=== PATIENT | male | born 1995 | race African-American/Black ===

== ENCOUNTER 2016-10-31 16:06 | Emergency (ER) | payer SELFPAY ==
[~2016-10-31] VITALS: Ht 192.4 cm; Wt 107.0 kg
[2016-10-31 16:09] VITALS: BP 130/87; PULSE 72; RESP 16; TEMP 98; O2SAT 96
[2016-10-31 18:38] VITALS: BP 132/68; PULSE 73; RESP 18; TEMP 98.5; O2SAT 100
--- NOTE | 2016-10-31 18:41 | PD ---
HPI Chief Complaint: Depression Time Seen by Provider: 18:40 Travel History International Travel<30 days: No Contact w/Intl Traveler<30days: No Traveled to known affect area: No History of Present Illness HPI 21-year-old male presents to the emergency department for evaluation of depression. The patient was seen by the counselor at his [employer] today and was referred to come here for psychiatric evaluation. The patient agreed to come voluntarily. The patient states that 3 years ago when he stopped playing football he became very disappointed with himself and slightly depressed. States that he has wrestled with this depression since then but that 3 weeks ago his girlfriend broke up with him and his depression has worsened. He denies any thoughts of harming himself or anyone else. He denies any attempts to harm himself. Denies any ingestion of substances. He states that he used to smoke marijuana but quit smoking this about 2 months ago. Denies any other drug use. Denies alcohol use. He denies alcides auditory or visual hallucinations. He states that he has 2 sides of his mind that seem to drive his thought processes. He describes one side of his thoughts to be "rational" and the other to be "irrational." States that his rational thoughts will "uplift and encourage him." States that the irrational sides of himself cause him to feel "self-deprecating and depressed." He denies any medical complaints. Denies any fever, chills, nausea, vomiting, chest pain, shortness of breath, abdominal pain. He does not take any medications. No other complaints. [facility], [facility] Past Medical History Patient Takes Glucophage: No Diminished Hearing: No Immunizations Current: Yes ([employer] Student) Tetanus Vaccination: Unknown Influenza Vaccination: Yes ?: Not Past Surgical History Surgical History: No Previous Surgery Social History Alcohol Use: Yes (Occassionally) Tobacco Use: No (Denies.) Substance Use: No ( Marijusterling - states stopped New Years 2016.) Allergies-Medications (Allergen,Severity, Reaction): Uncoded Allergies: Pollen (Allergy, Unknown, 10/31/16) Per pt. Reported Meds & Prescriptions Reported Meds & Active Scripts Active No Active Prescriptions or Reported Medications Review of Systems Except as stated in HPI: all other systems reviewed are Neg Physical Exam Narrative GENERAL: Well-nourished and well-developed pleasant male patient in no acute distress who is nontoxic appearing. SKIN: Warm and dry. HEAD: Normocephalic and atraumatic. EYES: No injection, drainage, or hyphema noted. PERRLA. EOMI. ENT: No nasal drainage noted. Oropharynx is clear. NECK: Supple and the trachea is midline. CARDIOVASCULAR: Regular rate and rhythm. RESPIRATORY: Breath sounds are equal bilaterally with no accessory muscle use, wheezing, rhonchi, or crackles. GASTROINTESTINAL: Abdomen is soft, non-tender, and nondistended. MUSCULOSKELETAL: No obvious deformities, swelling, cyanosis, or ecchymosis is present throughout the upper and lower extremities. Patient has full range of motion without any signs of neurovascular compromise. NEUROLOGICAL: Awake, alert, and oriented. Normal speech and gait. Cranial nerves are grossly intact. PSYCHIATRIC: No delusional thought processes. No hallucinations. Data Data Last Documented VS Vital Signs Date Time Temp Pulse Resp B/P Pulse Ox O2 Delivery O2 Flow Rate FiO2 10/31/16 22:16 97.4 65 18 125/76 100 Room Air Orders Diet Regular Basic (10/31/16 Dinner) Complete Blood Count With Diff (10/31/16 18:01) Comprehensive Metabolic Panel (10/31/16 18:01) Psych Screen (10/31/16 18:01) Drug Screen, Random Urine (10/31/16 18:01) Alcohol (Ethanol) (10/31/16 18:01) Labs Laboratory Tests Test 10/31/16 10/31/16 18:38 18:56 White Blood Count 6.7 TH/MM3 Red Blood Count 4.85 MIL/MM3 Hemoglobin 13.3 GM/DL Hematocrit 39.9 % Mean Corpuscular Volume 82.3 FL Mean Corpuscular Hemoglobin 27.4 PG Mean Corpuscular Hemoglobin 33.3 % Concent Red Cell Distribution Width 13.6 % Platelet Count 223 TH/MM3 Mean Platelet Volume 8.0 FL Neutrophils (%) (Auto) 50.2 % Lymphocytes (%) (Auto) 34.4 % Monocytes (%) (Auto) 9.7 % Eosinophils (%) (Auto) 4.9 % Basophils (%) (Auto) 0.8 % Neutrophils # (Auto) 3.4 TH/MM3 Lymphocytes # (Auto) 2.3 TH/MM3 Monocytes # (Auto) 0.7 TH/MM3 Eosinophils # (Auto) 0.3 TH/MM3 Basophils # (Auto) 0.1 TH/MM3 CBC Comment DIFF FINAL Differential Comment Sodium Level 139 MEQ/L Potassium Level 3.9 MEQ/L Chloride Level 103 MEQ/L Carbon Dioxide Level 29.9 MEQ/L Anion Gap 6 MEQ/L Blood Urea Nitrogen 16 MG/DL Creatinine 1.16 MG/DL Estimat Glomerular Filtration 97 ML/MIN Rate Random Glucose 87 MG/DL Calcium Level 9.0 MG/DL Total Bilirubin 0.3 MG/DL Aspartate Amino Transf 41 U/L (AST/SGOT) Alanine Aminotransferase 42 U/L (ALT/SGPT) Alkaline Phosphatase 60 U/L Total Protein 7.0 GM/DL Albumin 3.8 GM/DL Ethyl Alcohol Level LESS THAN 3 MG/DL Urine Opiates Screen NEG Urine Barbiturates Screen NEG Urine Amphetamines Screen NEG Urine Benzodiazepines Screen NEG Urine Cocaine Screen NEG Urine Cannabinoids Screen NEG MDM Medical Decision Making Medical Screen Exam Complete: Yes Emergency Medical Condition: Yes Differential Diagnosis Differential: Depression versus adjustment reaction versus anxiety versus PTSD versus psychosis NOS versus mood disorder NOS versus substance induced mood disorder versus ODD versus adjustment reaction versus schizophrenia versus bipolar disorder versus schizoaffective versus electrolyte abnormality Narrative Course Patient presents voluntarily for psychiatric evaluation. Physical examination and vital signs are essentially unremarkable. Patient has no medical complaints to report. He seems to be experiencing some mood disorder but he has no suicidal or homicidal ideations. The patient is not a harm to himself or anyone else. He does not meet Pacheco act criteria. He is encouraged to stay and speak with the psychiatrist but if he wishes to leave he is stable and safe to do so. Patient is currently agreeable to stay for psych screening. Psych screen has been ordered. The laboratory results are unremarkable. The patient is medically cleared for psychiatric evaluation and disposition. Diagnosis Primary Impression: Mood disorder Scripts No Active Prescriptions or Reported Meds Nighat Bradley Oct 31, 2016 18:41
[2016-10-31 18:56] LABS: AUTOMATED NEUTROPHIL # 3.4 TH/MM3 (1.8-7.7); BASOPHIL # 0.1 TH/MM3 (0-0.2); BASOPHIL % 0.8 % (0.0-2.0); EOSINOPHIL # 0.3 TH/MM3 (0-0.4); EOSINOPHIL % 4.9 % (0.0-4.0); HEMATOCRIT 39.9 % (39.0-51.0); HEMO FLAGS DIFF FINAL; LYMPH % 34.4 % (9.0-44.0); LYMPHOCYTE # 2.3 TH/MM3 (1.0-4.8); MEAN CELL VOLUME 82.3 FL (80.0-100.0); MEAN CORPUSCULAR HEMOGLOBIN 27.4 PG (27.0-34.0); MEAN CORPUSCULAR HGB CONC 33.3 % (32.0-36.0); MONO % 9.7 % (0.0-8.0); NEUT % 50.2 % (16.0-70.0); PLATELET COUNT 223 TH/MM3 (150-450); RED BLOOD COUNT 4.85 MIL/MM3 (4.50-5.90); RED CELL DISTRIBUTION WIDTH 13.6 % (11.6-17.2); WHITE BLOOD COUNT 6.7 TH/MM3 (4.0-11.0)
[2016-10-31 19:22] LABS: ANION GAP 6 MEQ/L (5-15); AST (GOT) 41 U/L (15-39); BICARBONATE 29.9 MEQ/L (21.0-32.0); BLOOD UREA NITROGEN 16 MG/DL (7-18); CHLORIDE 103 MEQ/L (98-107); GLOMERULAR FILTRATION RATE 97 ML/MIN (>89); POTASSIUM 3.9 MEQ/L (3.5-5.1); SODIUM (NA) 139 MEQ/L (136-145)
[2016-10-31 19:27] LABS: ALKALINE PHOSPHATASE 60 U/L (45-117); ALT (GPT) 42 U/L (9-52); TOTAL BILIRUBIN ADULT 0.3 MG/DL (0.2-1.0)
[2016-10-31 19:32] LABS: AMPHETAMINE, URINE NEG (NEG); BARBITURATES, URINE NEG (NEG); COCAINE, URINE NEG (NEG)
[2016-10-31 22:16] VITALS: BP 125/76; PULSE 65; RESP 18; TEMP 97.4; O2SAT 100
[2016-11-01 02:11] VITALS: BP 125/72; PULSE 53; RESP 18; O2SAT 98
[2016-11-01 06:06] VITALS: BP 116/62; PULSE 73; RESP 18; O2SAT 96
[2016-11-01 10:09] VITALS: BP 119/67; PULSE 87; RESP 18; O2SAT 100
[2016-11-01] MEDS ORDERED: PROZ20CA11 PO (10:27)
[2016-11-01] MEDS ORDERED: FLUoxetine HCL 20 MG CAP PO ONE (10:30)
[2016-11-01 10:35] VITALS: BP 119/67; PULSE 87; RESP 18; O2SAT 100
--- NOTE | 2016-11-01 10:44 | PD ---
History of Present Illness Chief Complaint: Depression Time Seen by Provider: 10:15 Travel History International Travel<30 Days: No Contact w/Intl Traveler<30days: No Known affected area: No Legal Status Legal Status: Voluntary History of Present Illness: This is a 21-year-old male who presents with symptoms of depression and possible auditory hallucinations. The patient and his girlfriend broke up approximately 4 weeks ago and he has been experiencing increasing symptoms of depression since that time. He denies being suicidal or homicidal but is interested in receiving treatment for his depressive symptoms, which include depressed mood, anhedonia, diminished energy, decreased motivation, social withdrawal, insomnia, low self-esteem, etc. He also provides a history of 2 sides of his mind conflicted with each other, one of which tells him good things and the other of which is critical of him. This physician discussed and offered hospitalization due to the possibility this could be psychotic symptoms but the patient declines and appears to be competent to do so. He does want to try antidepressant medication and he was given a prescription for Prozac 20 mg per day after informed consent was given. He will be given a follow up referral t at [facility] Past Medical History Medical History: Denies Significant Hx Patient Takes Glucophage: No Diminished Hearing: No Immunizations Current: Yes ([employer] Student) Tetanus Vaccination: Unknown Influenza Vaccination: Yes ?: Not Past Surgical History Surgical History: No Previous Surgery Psychiatric History Psychiatric History Hx Psychiatric Treatment: DENIES History of Inpatient Treatment: No Guns or firearms in home: No Social History Hx Alcohol Use: Yes (Occassionally) Hx Tobacco Use: No (Denies.) Hx Substance Use: Yes (occ. wine) Substance Use Type: Alcohol, Marijuana Other Substances Used: no marijuana since 09/08/16 Hx of Substance Use Treatment: No Allergies-Medications (Allergen,Severity, Reaction): Uncoded Allergies: Pollen (Allergy, Unknown, 10/31/16) Per pt. Reported Meds & Prescriptions Reported Meds & Active Scripts Active Prozac (Fluoxetine HCl) 20 Mg Cap 20 Mg PO DAILY Review of Systems ROS Limitations: Clinical Condition Except as stated in HPI: all other systems reviewed are Neg Exam Alert: Yes Wheelwright: Person, Place, Date, Situation Mood: Calm, Depressed Affect: Restricted Speech: Clear, Logical Eye Contact: Normal Memory Intact: Immediate, Recent, Remote Hallucinations: Other Delusions: No Insight/Judgement Fair to good. Patient is willing to accept follow up treatment and has been instructed to return to emergency department for further evaluation and possible hospitalization if the "voices" inside his head are causing him greater distress. MDM Medical Decision Making Medical Record Reviewed: Yes Assessment/Plan As stated above, the patient will be given a prescription for Prozac 20 mg per day and a referral for follow up to [facility]. Orders Diet Regular Basic (10/31/16 Dinner) Complete Blood Count With Diff (10/31/16 18:01) Comprehensive Metabolic Panel (10/31/16 18:01) Psych Screen (10/31/16 18:01) Drug Screen, Random Urine (10/31/16 18:01) Alcohol (Ethanol) (10/31/16 18:01) Diet Regular Basic (11/01/16 Breakfast) Fluoxetine (Prozac) (11/01/16 10:30) Results Vital Signs Date Time Temp Pulse Resp B/P Pulse Ox O2 Delivery O2 Flow Rate FiO2 11/01/16 10:09 87 18 119/67 100 Room Air 11/01/16 06:06 73 18 116/62 96 Room Air 11/01/16 02:11 53 18 125/72 98 Room Air 10/31/16 22:16 97.4 65 18 125/76 100 Room Air 10/31/16 18:38 98.5 73 18 132/68 100 10/31/16 16:09 98.0 72 16 130/87 96 Room Air Laboratory Tests Test 10/31/16 10/31/16 18:38 18:56 White Blood Count 6.7 Red Blood Count 4.85 Hemoglobin 13.3 Hematocrit 39.9 Mean Corpuscular Volume 82.3 Mean Corpuscular Hemoglobin 27.4 Mean Corpuscular Hemoglobin 33.3 Concent Red Cell Distribution Width 13.6 Platelet Count 223 Mean Platelet Volume 8.0 Neutrophils (%) (Auto) 50.2 Lymphocytes (%) (Auto) 34.4 Monocytes (%) (Auto) 9.7 Eosinophils (%) (Auto) 4.9 Basophils (%) (Auto) 0.8 Neutrophils # (Auto) 3.4 Lymphocytes # (Auto) 2.3 Monocytes # (Auto) 0.7 Eosinophils # (Auto) 0.3 Basophils # (Auto) 0.1 CBC Comment DIFF FINAL Differential Comment Sodium Level 139 Potassium Level 3.9 Chloride Level 103 Carbon Dioxide Level 29.9 Anion Gap 6 Blood Urea Nitrogen 16 Creatinine 1.16 Estimat Glomerular Filtration 97 Rate Random Glucose 87 Calcium Level 9.0 Total Bilirubin 0.3 Aspartate Amino Transf 41 (AST/SGOT) Alanine Aminotransferase 42 (ALT/SGPT) Alkaline Phosphatase 60 Total Protein 7.0 Albumin 3.8 Ethyl Alcohol Level LESS THAN 3 Urine Opiates Screen NEG Urine Barbiturates Screen NEG Urine Amphetamines Screen NEG Urine Benzodiazepines Screen NEG Urine Cocaine Screen NEG Urine Cannabinoids Screen NEG Diagnosis Primary Impression: Adjustment disorder with mixed disturbance of emotions and conduct Prescriptions Fluoxetine (Prozac)20 Mg Cap20 Mg PO DAILY #30 CAP Ref 0 Prov:Silvestre Frederick MD 11/01/16 Silvestre Frederick MD Nov 01, 2016 10:44
== END 2016-11-01 11:02 | disposition home or self-care (01) ==
LOC: NEPJ 16:06
DX: F43.25 Adjustment disorder with mixed disturbance of emotions and conduct (principal)
CPT/HCPCS: 80053; 80307; 80320; 85025; 99284